=== PATIENT | female | born 2005 | race Asian ===

== ENCOUNTER 2023-06-22 09:23 | Outpatient (REF) | payer MEDICAID, SELFPAY ==
--- NOTE | ~2023-06-22 | US_ITS ---
EXAMINATION: US PELVIS CLINICAL INFORMATION: Postcoital bleeding. 17-year-old, irregular LMP COMPARISON: None available. TECHNIQUE: Ultrasound of the pelvis is performed using both transabdominal and transvaginal transducers along with Doppler. Transvaginal imaging is performed due to inadequate visualization transabdominally. FINDINGS: Uterus: The uterus is anteverted and measures 7.3 x 3.0 x 4.8 cm. The double wall endometrial thickness is 0.6 mm. The uterus is smooth in contour and has normal myometrial echogenicity. No visible fibroid. Adnexa: Both ovaries are visualized. There is normal color flow to the adnexa. There is no ovarian torsion. There is no pelvic ascites or fluid collection. Right ovary measures 3.0 x 1.4 x 2.6 cm. Left ovary measures 3.4 x 1.6 x 2.0 cm. US/US pelvic and transvaginal IMPRESSION: Unremarkable pelvic ultrasound.
== END 2023-06-22 09:24 | disposition home or self-care (01) ==
LOC: HO.UMASIMG 09:23
PROVIDERS: Visit Provider Nurse Practitioner Women's Health
DX: N93.0 Postcoital and contact bleeding (principal)
CPT/HCPCS: 76830; 76856

== ENCOUNTER 2024-11-07 06:16 | Outpatient (REF) | payer MEDICAID, SELFPAY | END 2024-11-07 06:17 | disposition home or self-care (01) | LOC: HO.UMASIMG 06:16 | PROVIDERS: Visit Provider Nurse Practitioner Women's Health | DX: Z13.89 Encounter for screening for other disorder (principal) ==